=== PATIENT | female | born 1975 | race Caucasian/White ===

== ENCOUNTER → 2017-04-27 | Outpatient (CLI) | payer OTHER ==
[~2017-04-27] MED LIST: BUSP15 PO; DULO60; ERGO400 PO; Esgic Tablet1 EACH PO; FURO40 PO; HYDHCL25 PO; LORA2 PO; ONDA4 PO; PARO20 PO; POTA20PAC; PROM25 PO; PROPANOLOL PO; SOMA350 MG PO; TEMA7.5 PO; TOPI100 PO; TRAM50 PO
== END | disposition home or self-care (01) ==
LOC: LAB EV 15:28
DX: L73.9 Follicular disorder, unspecified (principal)
CPT/HCPCS: 87070; 87205

== ENCOUNTER → 2018-03-17 | Outpatient (CLI) | payer OTHER ==
[2018-03-17 18:22] LABS: BASOPHILS ABSOLUTE AUTO 0.04 K/mm3 (0.00-0.23); BASOPHILS PERCENT AUTO 1 % (0-2); EOSINOPHILS ABSOLUTE AUTO 0.14 K/mm3 (0.00-0.68); EOSINOPHILS PERCENT AUTO 2 % (0-6); Hematocrit 37.8 % (33.0-51.0); Hemoglobin 12.5 g/dL (11.5-16.0); IMMATURE GRAN ABSOLUTE AUTO 0.02 K/mm3 (0.00-0.10); IMMATURE GRAN PERCENT AUTO 0 % (0-1); LYMPHOCYTES ABSOLUTE AUTO 3.14 K/mm3 (0.84-5.20); LYMPHOCYTES PERCENT AUTO 38 % (21-46); MONOCYTES ABSOLUTE AUTO 0.37 K/mm3 (0.16-1.47); MONOCYTES PERCENT AUTO 5 % (4-13); Mean Corpuscular HGB 28.9 pg (26.0-34.0); Mean Corpuscular HGB Conc 33.1 g/dL (31.5-36.5); Mean Corpuscular Volume 88 fL (80-100); Mean Platelet Volume 9.4 fL (9.1-12.4); NEUTROPHILS ABSOLUTE AUTO 4.58 K/mm3 (1.96-9.15); NEUTROPHILS PERCENT AUTO 55 % (41-73); Platelet Count 276 K/mm3 (150-400); RDW Coefficient Variation 14.2 % (11.7-14.2); RDW Standard Deviation 45.2 fL (35.1-46.3); Red Blood Cell Count 4.32 M/mm3 (3.80-5.20); White Blood Cell Count 8.29 K/mm3 (4.00-11.30)
[2018-03-17 18:35] LABS: Albumin, Blood 3.7 g/dL (3.4-5.0); Albumin/Globulin Ratio 0.8 (0.8-1.8); Bilirubin, Total 0.3 mg/dL (0.1-1.0); Bun/Creatinine Ratio 7.1 (12.0-20.0); Calcium, Blood 8.5 mg/dL (8.5-10.1); Creatinine, Blood 1.12 mg/dL (0.40-1.00); Globulin, Blood 4.4 g/dL (2.2-4.0); Potassium, Blood 3.4 mmol/L (3.5-5.5); Total Protein, Blood 8.1 g/dL (6.4-8.2)
== END | disposition home or self-care (01) ==
LOC: LAB EV 18:19 → LAB SHORT 18:19
PROVIDERS: Physician Assistant
DX: I10 Essential (primary) hypertension (principal)
CPT/HCPCS: 80053; 85025

== ENCOUNTER → 2019-10-08 | Outpatient (CLI) | payer OTHER | LOC: LAB SHORT 15:44 → LAB EV 15:44 | DX: J22 Unspecified acute lower respiratory infection (principal); Z20.828 Contact with and (suspected) exposure to other viral communicable diseases | CPT/HCPCS: U0003 ==

== ENCOUNTER → 2022-05-07 | Outpatient (CLI) | payer OTHER ==
[2022-05-07 15:25] LABS: Alanine Aminotransfer (ALT/SGP 18 U/L (12-78); Albumin, Blood 3.3 g/dL (3.4-5.0); Albumin/Globulin Ratio 0.7 (0.8-1.8); Alk Phos 56 U/L (50-136); Anion Gap 5 mmol/L (6-16); Aspartate Aminotrans (AST/SGOT 17 U/L (12-37); Bilirubin, Total 0.3 mg/dL (0.1-1.0); Blood Urea Nitrogen 15 mg/dL (8-24); Bun/Creatinine Ratio 16.7 (12.0-20.0); CHOL/HDL RATIO 2.6; CO2, Blood 22 mmol/L (21-32); Calcium, Blood 8.4 mg/dL (8.5-10.1); Chloride, Blood 110 mmol/L (98-108); Cholesterol 186 mg/dL (50-200); Globulin, Blood 4.5 g/dL (2.2-4.0); Glomerular Filtration Rate 80 (60-); Glucose, Blood 106 mg/dL (70-99); HDL Cholesterol 71 mg/dL (>39); LDL/HDL RATIO 1.2; Low Density Lipoprotein Chol 83 mg/dL (0-110); Potassium, Blood 3.7 mmol/L (3.5-5.5); Sodium, Blood 137 mmol/L (136-145); Total Protein, Blood 7.8 g/dL (6.4-8.2); Triglycerides 158 mg/dL (30-160); Very Low Density Lipoprot Chol 31 mg/dL (6-32)
== END | disposition home or self-care (01) ==
LOC: LAB SHORT 10:30 → LAB 10:30
PROVIDERS: Student in an Organized Health Care Education/Training Program
DX: E78.5 Hyperlipidemia, unspecified (principal)
CPT/HCPCS: 80053; 80061

== ENCOUNTER → 2022-12-07 | Outpatient (CLI) | payer OTHER ==
[2022-12-07 19:52] LABS: BASOPHILS ABSOLUTE AUTO 0.05 K/mm3 (0.00-0.23); BASOPHILS PERCENT AUTO 1 % (0-2); EOSINOPHILS ABSOLUTE AUTO 0.19 K/mm3 (0.00-0.68); EOSINOPHILS PERCENT AUTO 2 % (0-6); Hematocrit 40.3 % (33.0-51.0); Hemoglobin 13.3 g/dL (11.5-16.0); IMMATURE GRAN ABSOLUTE AUTO 0.02 K/mm3 (0.00-0.10); IMMATURE GRAN PERCENT AUTO 0 % (0-1); LYMPHOCYTES ABSOLUTE AUTO 3.07 K/mm3 (0.84-5.20); LYMPHOCYTES PERCENT AUTO 36 % (21-46); MONOCYTES PERCENT AUTO 7 % (4-13); Mean Corpuscular HGB 29.9 pg (26.0-34.0); Mean Corpuscular Volume 91 fL (80-100); Mean Platelet Volume 11.2 fL (9.1-12.4); NEUTROPHILS PERCENT AUTO 53 % (41-73); Platelet Count 264 K/mm3 (150-400); RDW Coefficient Variation 13.8 % (11.7-14.2); RDW Standard Deviation 46.4 fL (35.1-46.3); Red Blood Cell Count 4.45 M/mm3 (3.80-5.20); White Blood Cell Count 8.43 K/mm3 (4.00-11.30)
[2022-12-07 20:14] LABS: Magnesium, Blood 2.1 mg/dL (1.6-2.4)
[2022-12-07 20:18] LABS: Albumin, Blood 3.2 g/dL (3.4-5.0); Albumin/Globulin Ratio 0.6 (0.8-1.8); Bilirubin, Total 0.1 mg/dL (0.1-1.0); Calcium, Blood 8.5 mg/dL (8.5-10.1); Thyroid Stimulating Hormone 0.818 uIU/mL (0.360-4.800); Total Protein, Blood 8.2 g/dL (6.4-8.2)
[2022-12-07 20:38] LABS: Microalb/Creat Ratio UR, Rand 10.866 mg/g (0.000-30.000); Microalbumin, Random Urine 30.1 mg/L (0.000-20.000)
== END | disposition home or self-care (01) ==
LOC: LAB SHORT 19:11 → LAB 19:11
PROVIDERS: Family Medicine
DX: N18.30 Chronic kidney disease, stage 3 unspecified (principal); E66.9 Obesity, unspecified; R73.03 Prediabetes
CPT/HCPCS: 80053; 82043; 82570; 83036; 83735; 84443; 85025

== ENCOUNTER → 2022-12-28 | Outpatient (CLI) | payer OTHER | LOC: LAB SHORT 18:46 → LAB 18:46 | DX: R30.0 Dysuria (principal) | CPT/HCPCS: 87077; 87086; 87186 ==

== ENCOUNTER → 2023-02-23 | Outpatient (CLI) | payer OTHER | LOC: LAB 14:53 → LAB SHORT 14:53 | DX: N39.0 Urinary tract infection, site not specified (principal) | CPT/HCPCS: 87077; 87086; 87186 ==